=== PATIENT | female | born 1960 | race Caucasian/White ===

== ENCOUNTER 2020-06-29 20:43 | Emergency (ER) | payer BC ==
[~2020-06-29] VITALS: Ht 167.6 cm; Wt 72.7 kg
[2020-06-29] MEDS ORDERED: BENA40TA3 PO (21:14)
[2020-06-29 21:16] LABS: BASO % 0 % (0-3); EOS % 0 % (0-3); HEMATOCRIT 41.9 % (36.0-47.0); LYMPH % 7 % (24-48); MEAN CORPUSCULAR HEMOGLOBIN 31 pg (25-35); MEAN CORPUSCULAR HGB CONC 33 g/dL (31-37); MEAN CORPUSCULAR VOLUME 93 fL (79-100); MONO # 1.2 x10^3/uL (0.0-1.1); MONO % 8 % (0-9); NEUT # 12.8 x10^3/uL (1.8-7.7); NEUT % 85 % (31-73); PLATELET COUNT 206 x10^3/uL (140-400); RED CELL DISTRIBUTION WIDTH 13.1 % (11.5-14.5)
[2020-06-29 21:27] LABS: CALCIUM 9.6 mg/dL (8.5-10.1); CREATININE 1.6 mg/dL (0.6-1.0); GFR 32.9; POTASSIUM 4.1 mmol/L (3.5-5.1)
[2020-06-29] MEDS ORDERED: IV NORMAL SALINE 1000ML BAG 1,000 ML IV ONE (21:30)
[2020-06-29] MEDS ORDERED: IV NORMAL SALINE 1000ML BAG 1,000 ML IV SCH (21:30)
[2020-06-29 21:33] LABS: ALBUMIN 3.6 g/dL (3.4-5.0); ALBUMIN/GLOBULIN RATIO 0.9 (1.0-1.7); TOTAL BILIRUBIN 0.3 mg/dL (0.2-1.0); TOTAL PROTEIN 7.5 g/dL (6.4-8.2)
--- NOTE | 2020-06-29 21:58 | RAD ---
Single view chest dated 06/29/2020. No comparison available. Clinical data indication: Syncope. FINDINGS: Single upright portable exam performed. Heart and mediastinal contours are within normal limits. Lung s are clear. No consolidation or pleural effusion. No pneumothorax. IMPRESSION: No acute radiographic abnormality. Electronically signed by: Aquilino Hayward MD (06/29/2020 9:56 PM) [email or web address]
[2020-06-29 22:15] LABS: % BANDS 4 % (0-9); % EOS 2 % (0-5); % LYMPHS 5 % (24-48); % MONOS 7 % (0-10); % SEGS 82 % (35-66); PLT ESTIMATE ADEQUATE (ADEQUATE)
[2020-06-29 22:16] LABS: POLYCHROMASIA SLIGHT
--- NOTE | 2020-06-29 22:56 | PHYS DOC ---
Past Medical History Past Medical History: High Cholesterol, Hypertension Smoking Status: Current Every Day Smoker Alcohol Use: None Drug Use: None General Adult EDM: Chief Complaint: SYNCOPE HPI: HPI: Patient is a 59yo female presenting by EMS for presyncope. Onset was ~45mins prior to arrival. 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 She notified her boss and was relocated to break room to sit down and be evaluated. PAtient reports intensifying wave of lightheadedness, nausea a nd subsequently had a large loose BM. She started becoming diaphoretic and "tired" after this prompting EMS to be called for transport. Patient was hypotensive on arrival otherwise VSS. 500ml LR bolused en route to ER. On arrival to ER, Patient reports "feeling better". She admits recently traveling back from [place] 2 days prior where she was working. She has had URI-like symptoms for past 4 days. She had a fever TMax 100.6 48 hours ago that resolved without issues. She has had ongoing rhinorrhea, post-nasal drip and a dry non- productive cough since. Admits only PMHx is HTN for which she takes medication daily. No known sick contacts or COVID-19 individuals, she has not had her COVID-19 vaccine yet Review of Systems: Review of Systems: Fourteen body systems of review of systems have been reviewed. See HPI for pertinent positives and negative responses, other polo all other systems are negative, non-pertinent or non-contributory Heart Score: C/O Chest Pain: No HEART Score for Chest Pain: HEART Score for Chest Pain Response (Comments) Value History Moderately Suspicious 1 ECG Normal 0 Age >45 - < 65 1 Risk Factors 1 or 2 Risk Factors 1 Troponin < Normal Limit 0 Total 3 Risk Factors: Risk Factors: DM, Current or recent (<one month) smoker, HTN, HLP, family history of CAD, obesity. Risk Scores: Score 0 - 3: 2.5% MACE over next 6 weeks - Discharge Home Score 4 - 6: 20.3% MACE over next 6 weeks - Admit for Clinical Observation Score 7 - 10: 72.7% MACE over next 6 weeks - Early Invasive Strategies Current Medications: Current Medications Medications (Trade) Dose Ordered Sig/Julio Start Time Stop Time Status Last Admin Dose Admin Sodium Chloride 1,000 ml @ 1,000 mls/hr 1X ONCE 06/29/20 21:30 06/29/20 22:29 DC 06/29/20 21:25 1,000 MLS/HR Allergies: Allergies: Allergies Coded Allergies Type Severity Reaction Last Updated Verified nickel Allergy Intermediate rash on skin 06/29/20 Yes poison kade extract Allergy Intermediate rash 06/29/20 Yes Physical Exam: PE: Constitutional: Well developed, well nourished, no acute distress, non-toxic appearance. [] HENT: Normocephalic, atraumatic, bilateral external ears normal, oropharynx moist, no oral exudates, nose normal. [] Eyes: PERRLA, EOMI, conjunctiva normal, no discharge. [] Neck: Normal range of motion, no tenderness, supple, no stridor. [] Cardiovascular:Heart rate regular rhythm, no murmur [] Lungs & Thorax: Bilateral breath sounds clear to auscultation [] Abdomen: Bowel sounds normal, soft, no tenderness, no masses, no pulsatile masses. [] Skin: Warm, dry, no erythema, no rash. [] Back: No tenderness, no CVA tenderness. [] Extremities: No tenderness, no cyanosis, no clubbing, ROM intact, no edema. [] Neurologic: Alert and oriented X 3, normal motor function, normal sensory function, no focal deficits noted. [] Psychologic: Affect normal, judgement normal, mood normal. [] Current Patient Data: Labs: Laboratory Tests Test 06/29/20 21:00 White Blood Count 15.0 x10^3/uL (4.0-11.0) H Red Blood Count 4.50 x10^6/uL (3.50-5.40) Hemoglobin 14.0 g/dL (12.0-15.5) Hematocrit 41.9 % (36.0-47.0) Mean Corpuscular Volume 93 fL (79-100) Mean Corpuscular Hemoglobin 31 pg (25-35) Mean Corpuscular Hemoglobin Concent 33 g/dL (31-37) Red Cell Distribution Width 13.1 % (11.5-14.5) Platelet Count 206 x10^3/uL (140-400) Neutrophils (%) (Auto) 85 % (31-73) H Lymphocytes (%) (Auto) 7 % (24-48) L Monocytes (%) (Auto) 8 % (0-9) Eosinophils (%) (Auto) 0 % (0-3) Basophils (%) (Auto) 0 % (0-3) Neutrophils # (Auto) 12.8 x10^3/uL (1.8-7.7) H Lymphocytes # (Auto) 1.0 x10^3/uL (1.0-4.8) Monocytes # (Auto) 1.2 x10^3/uL (0.0-1.1) H Eosinophils # (Auto) 0.0 x10^3/uL (0.0-0.7) Basophils # (Auto) 0.0 x10^3/uL (0.0-0.2) Segmented Neutrophils % 82 % (35-66) H Band Neutrophils % 4 % (0-9) Lymphocytes % 5 % (24-48) L Monocytes % 7 % (0-10) Eosinophils % 2 % (0-5) Platelet Estimate Adequate (ADEQUATE) Polychromasia Slight Sodium Level 141 mmol/L (136-145) Potassium Level 4.1 mmol/L (3.5-5.1) Chloride Level 102 mmol/L (98-107) Carbon Dioxide Level 29 mmol/L (21-32) Anion Gap 10 (6-14) Blood Urea Nitrogen 17 mg/dL (7-20) Creatinine 1.6 mg/dL (0.6-1.0) H Estimated GFR (Cockcroft-Gault) 32.9 BUN/Creatinine Ratio 11 (6-20) Glucose Level 145 mg/dL (70-99) H Calcium Level 9.6 mg/dL (8.5-10.1) Total Bilirubin 0.3 mg/dL (0.2-1.0) Aspartate Amino Transferase (AST) 35 U/L (15-37) Alanine Aminotransferase (ALT) 49 U/L (14-59) Alkaline Phosphatase 67 U/L (46-116) Troponin I Quantitative < 0.017 ng/mL (0.000-0.055) SJ-Zfq-C-Type Natriuretic Peptide 99 pg/mL (0-124) Total Protein 7.5 g/dL (6.4-8.2) Albumin 3.6 g/dL (3.4-5.0) Albumin/Globulin Ratio 0.9 (1.0-1.7) L Laboratory Tests 06/29/20 21:00 Laboratory Tests 06/29/20 21:00 Vital Signs: Vital Signs Date Time Temp Pulse Resp B/P (MAP) Pulse Ox O2 Delivery O2 Flow Rate FiO2 06/29/20 23:25 86 20 120/71 (87) 96 Room Air 06/29/20 22:55 79 20 138/74 (95) 96 Room Air 06/29/20 21:55 75 20 121/68 (85) 96 Room Air 06/29/20 21:25 96 26 114/69 (84) 96 Room Air 06/29/20 20:44 97.6 90 18 126/60 (82) 97 Room Air 97.6 EKG: EKG: EKG ordered and interpreted by myself at 2100 hrs. as sinus rhythm at 79 bpm, unremarkable intervals, no axis deviation, no acute ischemic findings, no STEMI, no prior EKG to compare to Radiology/Procedures: Radiology/Procedures: Single view chest dated 06/29/2020. No comparison available. Clinical data indication: Syncope. FINDINGS: Single upright portable exam performed. Heart and mediastinal contours are withi n normal limits. Lungs are clear. No consolidation or pleural effusion. No pneumothorax. IMPRESSION: No acute radiographic abnormality. Electronically signed by: Aquilino Hayward MD (06/29/2020 9:56 PM) [facility] [place] Course & Med Decision Making: Course & Med Decision Making HPI and PE concerning for viral syndrome and potentially COVID-19 infection. Patient likely presyncopal due to fluid loss from large non-bloody BM IVF rehydration en route and in ER helped in addition to IV antiemetics administered. ER workup grossly unremarkable. All studies reviewed with patient at length with good understanding. HEART score reviewed, given extent of symptoms, patient was recommended admission She declined as she felt "much better". Nausea had resolved, she was ambulatory and tolerating PO intake prior to departure. Patient wanted to be tested for COVID given symptoms and educated on quarantine protocols pending results etc Strict return precautions discussed with good understanding by patient, all questions and concerns addressed prior to departure Dragon Disclaimer: Dragon Disclaimer: This electronic medical record was generated, in whole or in part, using a voice recognition dictation system. Departure Departure Impression: Primary Impression: Nausea, vomiting, and diarrhea Additional Impressions: Hypovolemia dehydration Person under investigation for COVID-19 Disposition: 01 DC HOME SELF CARE/HOMELESS Condition: IMPROVED Referrals: UNKNOWN PCP NAME (PCP) Patient Instructions: Nausea and Vomiting, Viral Syndrome Additional Instructions: You were seen for upper respiratory symptoms, fever, nausea, vomit, diarrhea, and possible infection with COVID-19. Your physical exam was reassuring. Your chest x-ray was normal. We tested you for COVID-19 but this test does not come back for 1 to 2 days. In the meantime you need to quarantine yourself at home away from all other individuals, especially those who are elderly or have any other chronic health issues or an immunocompromised status. Alternate Tylenol and ibuprofen as needed for body aches and pain. If your test does come back positive you need to quarantine yourself for 10 days until symptom-free. You should make sure to drink plenty of fluids and get plenty of rest. As discussed, you were offered admission to our hospital for further observation and supportive care as needed but you declined. As such, it is vital for you to call your primary care physician first thing in the morning to review ER visit today and discuss next steps of care and when it is safe for repeat evaluation in outpatient setting. Some offices are utilizing telehealth visits, this might be beneficial in the interim until you find out your COVID-19 test results. You should return to the ED if you develop worsening cough, shortness of breath, chest pain, or any other new or concerning symptoms. FEROZ BATES DO Jun 29, 2020 22:56
[2020-06-29 23:25] VITALS: BP 120/71
--- NOTE | 2020-06-30 04:06 | EKG ---
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
--- NOTE | 2020-06-30 10:38 | NUR ---
IP: Pt returned my call. Informed her of the negative COVID test. Pt verbalized understanding.
== END 2020-06-29 23:50 | disposition home or self-care (01) ==
LOC: ER 20:43
DX: R11.2 Nausea with vomiting, unspecified (principal); Z20.822 Contact with and (suspected) exposure to COVID-19; R19.7 Diarrhea, unspecified; R42 Dizziness and giddiness; R55 Syncope and collapse; E78.00 Pure hypercholesterolemia, unspecified; I10 Essential (primary) hypertension; F17.200 Nicotine dependence, unspecified, uncomplicated; Z88.8 Allergy status to other drugs, medicaments and biological substances
CPT/HCPCS: 36415; 71045; 80053; 83880; 84484; 85007; 85025; 93005; 96360; 99285; J7030; U0003